=== PATIENT | female | born 1945 | race Caucasian/White ===

== ENCOUNTER → 2023-06-23 10:58 | Outpatient (REF) | payer MEDICARE, OTHER, SELFPAY | LOC: RAD 10:58 | PROVIDERS: ATTENDING PHYSICIAN Nurse Practitioner Family; FAMILY PHYSICIAN Internal Medicine | DX: R06.89 Other abnormalities of breathing (principal) | CPT/HCPCS: 71046 ==

== ENCOUNTER → 2023-08-29 08:30 | Outpatient (REF) | payer MEDICARE, OTHER, SELFPAY | LOC: WDC 08:30 | PROVIDERS: ATTENDING PHYSICIAN Internal Medicine | DX: Z12.31 Encounter for screening mammogram for malignant neoplasm of breast (principal) | CPT/HCPCS: 77063; 77067 ==

== ENCOUNTER → 2024-02-23 07:17 | Outpatient (REF) | payer MEDICARE, OTHER, SELFPAY ==
[2024-02-23 09:36] LABS: % Basophils 0.9 % (0-2); % Eosinophils 3.9 % (0-6); % Immature Granulocytes 0.4 % (0-0.5); % Lymphocytes 33.2 % (20.5-51.1); % Monocytes 9.3 % (1.7-9.3); % Neutrophils 52.3 % (42.2-75.2); Absolute Basophils 0.1 10^3/uL (0-0.2); Absolute Eosinophils 0.2 10^3/uL (0-0.7); Absolute Lymphocytes 1.9 10^3/uL (1.2-3.4); Absolute Monocytes 0.5 10^3/uL (0.1-0.6); Hemoglobin 13.2 g/dL (12.0-16.0); Mean Corpuscular Hgb 30.6 pg (27.0-31.0); Mean Corpuscular Volume 92.8 fL (81.0-99.0); Nucleated Red Blood Cells % 0 %; Platelet Count 256 10^3/uL (130-400); Red Blood Cell Count 4.31 10^6/uL (4.20-5.40); Red Cell Dist. Width 13.3 % (11.5-14.5); White Blood Cell Count 5.7 10^3/uL (4.8-10.8)
[2024-02-23 10:06] LABS: Urine Albumin Negative (Neg - Trace); Urine Bilirubin Negative (Negative); Urine Character Clear (Clear); Urine Color Yellow; Urine Glucose Negative (Negative); Urine Ketone Negative (Negative); Urine Leukocyte Negative (Negative); Urine Nitrite Negative (Negative); Urine Occult Blood Negative (Negative); Urine Specific Gravity 1.015 (<1.030); Urine Urobilinogen Negative (Neg - 1+)
[2024-02-23 10:35] LABS: ALT (SGPT) 22 U/L (0-35); AST (SGOT) 22 U/L (14-36); Albumin 4.5 g/dl (3.5-5.0); Alkaline Phosphatase 58 U/L (38-126); Blood Urea Nitrogen 14 mg/dl (7-17); Calcium 9.6 mg/dl (8.4-10.2); Carbon Dioxide 28 mmol/L (22-30); Chloride 103 mmol/L (98-107); Glucose 94 mg/dl (70-99); HDL Cholesterol 91 mg/dl; LDL Cholesterol, Calculated 56 mg/dl; Sodium 142 mmol/L (135-145); Total Bilirubin 0.5 mg/dl (0.2-1.3); Total Cholesterol 167 mg/dl (50-199); Total Protein 7.1 g/dl (6.3-8.2); Triglyceride 102 mg/dl (10-149); Very Low Density Lipoprotein 20 mg/dl (0-30); eGFR > 60.00
[2024-02-23 11:02] LABS: TSH 1.55 uIU/ml (0.47-4.68)
== END ==
LOC: REG 07:17
PROVIDERS: ATTENDING PHYSICIAN Internal Medicine
DX: I10 Essential (primary) hypertension (principal); E78.2 Mixed hyperlipidemia; Z79.899 Other long term (current) drug therapy
CPT/HCPCS: 36415; 80053; 80061; 81003; 82306; 84443; 85025

== ENCOUNTER 2024-11-13 20:24 | Emergency (ER) | payer MEDICARE, OTHER, SELFPAY ==
[2024-11-13 20:31] VITALS: BP 154/77
--- NOTE | 2024-11-14 01:00 | ED.GENMED ---
History of Present Illness
General
Chief Complaint: Musculo-Skeletal Complaint
Source: patient
Exam Limitations: none
Time Seen by Provider: 11/14/24 00:12
Nursing documentation reviewed up to this point in time: agreed with
History of Present Illness
History of Present Illness:
79-year-old female presenting to the emergency department today with concerns of bruising redness to the right hand mainly overlying the second MCP. Progressing over the past few hours. Denies any chest pain shortness breath or fevers. Denies any
known injuries.
Past History
Past History
ED Past Medical History: Psychiatric
ED Past Surgical History: Orthopedic
Social History
Tobacco: Non-smoker
Alcohol: Occasional
Drug: None
Personal:
Living: alone
Family History
Family History: Negative Early CAD or CAD
Review of Systems
Review of Systems
Allergies reviewed?: Yes
All Other Systems: ROS reviewed and negative except as documented in HPI and ROS
Phy Exam
Physical Exam
Physical Exam:
GENERAL: Alert , in no apparent distress
EYE: pupils equal and reactive
NECK: Supple, no significant adenopathy.
ENT: o/p clr, mmm.
CARDIAC: Regular rate and rhythm .
LUNGS: Clear breath sounds bilaterally, no acute respiratory distress, no wheezes/rales/rhonchi
ABDOMEN: Soft, without focal tenderness, no r/g, no cvat
NEUROLOGICAL: Alert and oriented, no focal neuro deficits
SKIN: Findings as described below of the right hand warm and dry, skin intact.
MUSCULOSKELETAL: Small area of overlying redness overlying the right second MCP but good range of motion without obvious discomfort of the MCP. Surrounding ecchymosis to about one third of the dorsal radial hand. No edema, well perfused.
PSYCH: Normal and appropriate interaction.
Course
Orders/Labs/Results
Orders:
Orders
11/13/24 20:32
Hand, Right 3 View [CR Hand - Right Min 3 Views] Urgent
Comment:
Reason For Exam: bruising
11/14/24 00:51
Doxycycline [Vibramycin] 100 mg PO NOW STA
Vital Signs
Initial and Last Documented VS:
Initial Vital Signs
Temp Pulse Resp BP Pulse Ox
98.4 F 77 16 154/77 98
11/13/24 20:31 11/13/24 20:31 11/13/24 20:31 11/13/24 20:31 11/13/24 20:31
Last Documented Vital Signs
Temp Pulse Resp BP Pulse Ox
98.4 F 77 16 154/77 98
11/13/24 20:31 11/13/24 20:31 11/13/24 20:31 11/13/24 20:31 11/13/24 20:31
MDM/Problems Addressed
MDM/Problems Addressed:
79-year-old female presenting to the emergency department with skin changes to the right hand. There is a small amount of redness concerning for possible small infection but good range of motion of all joints operations boardman strength no fevers no systemic
symptoms. Patient started on antibiotics however symptoms could be consistent with posttraumatic changes, traumatic causes unknown. Otherwise patient advised to rest ice compress elevate and get close follow-up for reassessment. Strict return
precautions were discussed. She demonstrated understanding
*Pulse Oximetry
SaO2: 98
Oxygen Mode of Delivery: Room air
Patient hypoxic: no (98)
*Critical Care Note
Total Time (30-74mins, 75-104mins- exclusive of procedures): Not Applicable
ED Attending Note
-
Portions of this chart may have been created with voice recognition software.� Occasional wrong word or��sound alike� substitutions may have occurred due to the inherent limitations of voice recognition software.
Discharge Plan
Departure
Patient Disposition: Home (Routine Discharge)
Date of Disposition: 11/14/24
Time of Disposition: 01:02
Patient with high blood pressure during this ER visit?: No
Condition: Good
Covid-19: Not Applicable
Discharge Problem:
Cellulitis of hand, Contusion of hand
Instructions: Cellulitis (skin infection) in adults - Discharge instructions
Prescriptions:
New
doxycycline hyclate 100 mg tablet
100 mg PO BID 7 Days Qty: 14 0RF
No Action
estrogens-methyltestosterone 1 TAB tablet
0.5 tab PO DAILY
polyethylene glycol 3350 [Miralax] 17 GM powder in packet
17 gm PO HS
medroxyprogesterone 2.5 MG tablet
2.5 mg PO DAILY
mometasone [Nasonex] 17 GRAM spray,non-aerosol
0 spray intranasal DAILY
fexofenadine-pseudoephedrine 120 MG/60 MG tablet extended release 12 hr
1 tab PO DAILY
oxycodone 5 MG tablet
1 - 2 tab PO Q4H PRN (Reason: pain)
mesalamine [Canasa] 1,000 MG suppository
1,000 mg ME HS
calcium carbonate-vit D3-min [Caltrate 600-D Plus Minerals] 1 TAB tablet
1 tab PO DAILY
multivit with min-folic acid [One Daily Womens 50 Plus] 0.4 MG tablet
0.4 mg PO DAILY
nitrofurantoin monohyd/m-cryst 100 MG capsule
100 mg PO BID Qty: 10 0RF
phenazopyridine 100 MG tablet
100 mg PO TID Qty: 10 0RF
levofloxacin 500 mg tablet
500 mg PO DAILY Qty: 7 0RF
metronidazole 500 mg tablet
500 mg PO TID Qty: 21 0RF
Referrals:
Americo Das DO [Family Provider, Internal Medicine]
Activity Restrictions/Additional Instructions:
You came to the emergency department today with concerns of right hand swelling and redness. This may be from a traumatic injury though it is unclear. This could represent a mild infection. Please take the prescribed antibiotic and follow-up
closely with the primary care doctor for reassessment in the next 2 to 3 days. Return for any progressive symptoms.
Interventions
Interventions:
*Risk Screen - Suicide Last Done: 11/13/24 20:31
*General Assessment Last Done: 11/13/24 20:31
*Neglect/Abuse Screening Last Done: 11/13/24 20:31
*ED- Fall Risk Assessment Last Done: 11/13/24 20:31
*ED COVID-19 Vaccine History Last Done: 11/13/24 20:31
Discharge Date and Time
Print Language: FRENCH
== END 2024-11-14 01:54 | disposition home or self-care (01) ==
LOC: EMR 20:24
PROVIDERS: EMERGENCY PHYSICIAN Emergency Medicine; FAMILY PHYSICIAN Internal Medicine
DX: L03.113 Cellulitis of right upper limb (principal); S60.221A Contusion of right hand, initial encounter; X58.XXXA Exposure to other specified factors, initial encounter
CPT/HCPCS: 99283; 73130

== ENCOUNTER → 2024-12-04 11:27 | Outpatient (REF) | payer MEDICARE, OTHER, SELFPAY | LOC: WDC 11:27 | PROVIDERS: ATTENDING PHYSICIAN Internal Medicine | DX: Z12.39 Encounter for other screening for malignant neoplasm of breast (principal) | CPT/HCPCS: 77063; 77067 ==

== ENCOUNTER → 2025-01-09 07:10 | Outpatient (REF) | payer MEDICARE, OTHER, SELFPAY ==
[2025-01-09 08:00] LABS: Hematocrit 41.0 % (37.0-47.0); Hemoglobin 13.8 g/dL (12.0-16.0); Mean Corp Hgb Conc. 33.7 g/dL (33.0-37.0); Mean Corpuscular Volume 93.6 fL (81.0-99.0); Nucleated Red Blood Cells % 0 %; Platelet Count 277 10^3/uL (130-400); Red Cell Dist. Width 13.5 % (11.5-14.5)
[2025-01-09 08:06] LABS: Urine Character Clear (Clear)
[2025-01-09 08:37] LABS: ALT (SGPT) 17 U/L (0-35); AST (SGOT) 18 U/L (14-36); Albumin 4.6 g/dl (3.5-5.0); Alkaline Phosphatase 72 U/L (38-126); Blood Urea Nitrogen 11 mg/dl (7-17); Calcium 9.8 mg/dl (8.4-10.2); Carbon Dioxide 28 mmol/L (22-30); Chloride 106 mmol/L (98-107); Glucose 113 mg/dl (70-99); Potassium 4.4 mmol/L (3.5-5.1); Sodium 140 mmol/L (135-145); Total Protein 7.5 g/dl (6.3-8.2); Very Low Density Lipoprotein 20 mg/dl (0-30); eGFR > 60.00
[2025-01-09 08:47] LABS: HDL Cholesterol 120 mg/dl; LDL Cholesterol, Calculated 62 mg/dl
[2025-01-09 09:04] LABS: TSH 1.80 uIU/ml (0.47-4.68)
[2025-01-09 09:19] LABS: Urine Red Blood Cell 0-2 /HPF (0-2); Urine Squamous Cell 21-25 /LPF (Few)
[2025-01-09 09:27] LABS: Glycohemoglobin (HgbA1c) 5.9 % (4.0-5.6)
== END ==
LOC: REG 07:10
PROVIDERS: ATTENDING PHYSICIAN Internal Medicine
DX: I10 Essential (primary) hypertension (principal); K21.9 Gastro-esophageal reflux disease without esophagitis; R73.01 Impaired fasting glucose; E78.2 Mixed hyperlipidemia; R53.82 Chronic fatigue, unspecified
CPT/HCPCS: 36415; 80053; 80061; 81003; 81015; 83036; 84443; 85025

== ENCOUNTER → 2025-02-07 09:11 | Outpatient (REF) | payer MEDICARE, OTHER, SELFPAY ==
[2025-02-07 10:06] LABS: C-Reactive Protein < 5.00 mg/L (0.0-10.00)
[2025-02-08 19:43] LABS: CCP Antibody IgG/IgA 4 Units (0-19)
== END ==
LOC: REG 09:11
PROVIDERS: ATTENDING PHYSICIAN Internal Medicine Rheumatology; FAMILY PHYSICIAN Internal Medicine
DX: M15.4 Erosive (osteo)arthritis (principal)
CPT/HCPCS: 36415; 85652; 86140; 86200; 86430

== ENCOUNTER → 2025-02-27 08:01 | Outpatient (REF) | payer MEDICARE, OTHER, SELFPAY | LOC: DHSLP 08:01 | PROVIDERS: ATTENDING PHYSICIAN Internal Medicine | DX: G47.00 Insomnia, unspecified (principal); G47.61 Periodic limb movement disorder; G47.8 Other sleep disorders; R06.83 Snoring | CPT/HCPCS: 95810 ==